=== PATIENT | female | born 1945 | race Caucasian/White ===

== ENCOUNTER 2022-03-11 07:37 | Day surgery (SDC) | payer MEDICARE, OTHER ==
[2022-03-05 13:45] LABS: BASOPHILS # (AUTO) 0.1 X10'3 (0-0.2); BASOPHILS % (AUTO) 0.8 % (0-1); EOSINOPHILS # (AUTO) 0.1 X10'3 (0-0.9); EOSINOPHILS % (AUTO) 1.7 % (0-6); LYMPHOCYTES # (AUTO) 2.3 X10'3 (1.1-4.8); LYMPHOCYTES % (AUTO) 31.4 % (21-51); MEAN CORPUSCULAR HEMOGLOBIN 32.2 PG (27.0-31.0); MEAN CORPUSCULAR HGB CONC 33.6 g/dL (33.0-36.5); MEAN CORPUSCULAR VOLUME 95.8 FL (78-98); MEAN PLATELET VOLUME 7.3 FL (7.4-10.4); MONOCYTES # (AUTO) 0.7 X10'3 (0-0.9); MONOCYTES % (AUTO) 9.3 % (2-12); NEUTROPHILS # (AUTO) 4.1 X10'3 (1.8-7.7); NEUTROPHILS % (AUTO) 56.8 % (42-75); PRE OP HEMATOCRIT 40.2 % (35.0-45.0); PRE OP HEMOGLOBIN 13.5 g/dL (12.0-16.0); PRE OP PLATELET COUNT 325 X10'3 (140-440); RED CELL DISTRIBUTION WIDTH 14.7 % (11.5-14.5)
[2022-03-05 13:48] LABS: CLARITY,URINE CLEAR (Clear); COLOR,URINE YELLOW (Yellow); GLUCOSE, URINE NEGATIVE (Neg); KETONES,URINE NEGATIVE (Neg); LEUKOCYTE ESTERASE ,URINE NEGATIVE (Neg); NITRITES, URINE NEGATIVE (Neg); OCCULT BLOOD,URINE NEGATIVE (Neg); PROTEIN,URINE NEGATIVE (Neg); UROBILINOGEN,URINE 0.2 E.U/dL (0.2-1.0)
[2022-03-05 13:50] LABS: UA COLLECTION TYPE CLN CATCH MIDSTREAM
[2022-03-05 14:00] LABS: PRE OP PROTIME 10.3 SECONDS (9.0-12.0)
[2022-03-05 14:05] LABS: ALBUMIN/GLOBULIN RATIO 1.1 (1.1-1.5); ALKALINE PHOSPHATASE 91 IU/L (46-116); BLOOD UREA NITROGEN 14 MG/DL (7-18); BUN/CREATININE RATIO 24.1 (6.6-38.0); CHLORIDE 107 MMOL/L (99-107); CREATININE 0.58 MG/DL (0.40-0.90); PRE OP ALT 25 U/L (30-65); PRE OP ANION GAP 9 (8-16); PRE OP AST 24 U/L (10-37); PRE OP BILIRUB, TOTAL 0.4 MG/DL (0.0-1.0); PRE OP GLUCOSE 87 MG/DL (70-104); PRE OP POTASSIUM 3.7 MMOL/L (3.4-5.1); PRE OP SODIUM 141 MMOL/L (135-145); TOTAL CARBON DIOXIDE 24.6 MMOL/L (24-32); TOTAL PROTEIN 7.6 G/DL (6.4-8.2); eGFR > 90 ML/MIN
[2022-03-11] VITALS (11 sets, daily range): BP systolic 143–186; BP diastolic 70–97
[~2022-03-11] VITALS: Ht 165.1 cm; Wt 69.9 kg
[~2022-03-11 07:37] MED LIST: FELO5TAB45 PO; LEVO75TA56 PO; LIDOcaine 1% W/epiNEPHrine 1:100,000 20ml vial ONE; OLME40TA18 PO; bacitracin 15gm ointment TP ONE; cocaine 4% topical solution 4ml bottle ONE; famotidine 20mg tablet PO ONE; oxymetazoline 15 ML nasal spray NS ONE; oxymetazoline 15 ML nasal spray NS PRN; ringers solution, lacted 1,000 ML IV SCH
[2022-03-11] MEDS ORDERED: mupirocin 2% ointment 22GM ONE (08:29)
[2022-03-11] MEDS ORDERED: ondansetron/PF 4mg/2ml inj IV PRN (09:55)
[2022-03-11] MEDS ORDERED: ringers solution, lacted 1,000 ML IV SCH (09:55)
[2022-03-11] MEDS ORDERED: HYDROmorphone/PF 0.2 MG/ML SYRINGE IV PRN (09:55)
[2022-03-11] MEDS ORDERED: fentaNYL/PF 50MCG/1 ML 2ML syringe ONE (09:59)
[2022-03-11] MEDS ORDERED: LIDOcaine 2% (20mg/ml) 5ml vial ONE (10:00)
[2022-03-11] MEDS ORDERED: propofol inj 20 ML IV ONE (10:00)
[2022-03-11] MEDS ORDERED: sevoflurane 250ml liquid IH ONE (10:03)
[2022-03-11] MEDS ORDERED: tranexamic acid 100mg/ml inj. ONE (10:05)
[2022-03-11] MEDS ORDERED: LIDOcaine 1% W/epiNEPHrine 1:100,000 20ml vial IJ ONE (10:25)
[2022-03-11] MEDS ORDERED: cocaine 4% topical solution 4ml bottle TP ONE (10:25)
[2022-03-11] MEDS ORDERED: mupirocin 2% ointment 22GM TP ONE (10:25)
--- NOTE | 2022-03-11 11:26 | NUR ---
Received from OR via , accompanied by Anesthesiologist DR LYNCH and report given by Anesthesiolgist. PT UN RESPONSIVE DUE TO ANESTHESIA, SKIN WARMA AND PINK, PIV RIGHT HAND 22G WITH LR 100ML/HR, COTTONOID LEFT NOSTRIL, PT HIGH 186/92. DR LYNCH GAVE 5MG HYDRALAZINE.
[2022-03-11] MEDS: morphine 2 MG/ML inj. syringe IV PRN ×2 (11:54→12:29)
--- NOTE | 2022-03-11 12:12 | NUR ---
REMOVED COTTONOID. NO NASAL DRAINAGE. PLACED DRESSING UNDER NOSE PRN.
[2022-03-11] MEDS ORDERED: salt irrigation nasal spray 45 ML SPRAY NS PRN (12:20)
[2022-03-11] MEDS ORDERED: hydrALAZINE 20mg/ml inj. IV ONE (12:23)
[2022-03-11] MEDS ORDERED: dexamethasone sod phosphate 4mg/ml inj. ONE (12:24)
[2022-03-11] MEDS ORDERED: ondansetron/PF 4mg/2ml inj ONE (12:24)
--- NOTE | 2022-03-11 12:56 | NUR ---
Belongings [ALL BELONGINGS SENT WITH PT. PT STATES HER HAS HER GLASSES]. PT MEETS DISCHARGE CRITERIA, BP STABLE AND UNDER 150 SBP, MIN SEROSANQ DRAINAGE FROM LEFT NOSTRIL, IV REMOVED, PT USED SALINE AND MUPRIOCIN PRIOR TO DISCHARGE, NASAL DRESSING IN PLACE, VSS, MIN HEADACHE PAIN, PT STATED SHE NEEDED TO USE THE RESTROOM BUT CHOSE TO WAIT UNTIL SHE GOT HOME. RN STRESSED WE HAVE FACILITES HERE IF SHE NEEDS. PT TAKEN TO CAR VIA W/C WITH AT SIDE.
== END 2022-03-11 12:56 | disposition home or self-care (01) ==
LOC: PAS 07:37
PROVIDERS: ATTEND Otolaryngology
DX: J32.8 Other chronic sinusitis (principal); J32.9 Chronic sinusitis, unspecified; Z79.899 Other long term (current) drug therapy; Z79.01 Long term (current) use of anticoagulants; Z98.890 Other specified postprocedural states; Z90.710 Acquired absence of both cervix and uterus; Z88.0 Allergy status to penicillin; Z88.8 Allergy status to other drugs, medicaments and biological substances; Z88.1 Allergy status to other antibiotic agents; Z96.652 Presence of left artificial knee joint; Z20.822 Contact with and (suspected) exposure to COVID-19
CPT/HCPCS: 31256; 31257; 36415; 61782; 80053; 81003; 82948; 85025; 85576; 85610; 85730; 87635; 93005; A6402; C9250; C9803; J0360; J1100; J2270; J2405; J2704; J3010; J3490; J7030; J7040; J7120; U0003; Z7506; Z7508; Z7512; 88304; 88311; A4618; A6449; A7000